=== PATIENT | male | born 1960 | race Caucasian/White ===

== ENCOUNTER 2020-12-28 02:53 | Outpatient (CLI) | payer BC, SELFPAY ==
[2020-12-29 12:37] LABS: ALT 77 U/L (16-63); AST 61 U/L (15-37); Albumin 3.9 g/dL (3.4-5.0); Alkaline Phosphatase 74 U/L (46-116); Anion Gap 7.6 mmol/L (3-11); BUN 11 mg/dL (7-18); CO2 30.4 mmol/L (21.0-32.0); CREATININE 1.1 mg/dL (0.70-1.30); Calcium 9.3 mg/dL (8.5-10.1); Chloride 104 mmol/L (98-107); Glucose 122 mg/dL (74-106); Potassium 4.7 mmol/L (3.5-5.1); Sodium 142 mmol/L (136-145); Total Protein 7.2 g/dL (6.4-8.2)
[2020-12-29 12:43] LABS: Hemoglobin A1C 5.9 % (<5.7)
== END 2020-12-28 10:00 ==
DX: R73.9 Hyperglycemia, unspecified (principal)
CPT/HCPCS: 36415; 80053; 83036

== ENCOUNTER 2021-12-22 10:00 | Outpatient (CLI) | payer BC, SELFPAY ==
[2021-12-22 13:37] LABS: ALT 49 U/L (16-63); AST 31 U/L (15-37); Albumin 4.2 g/dL (3.4-5.0); Alkaline Phosphatase 75 U/L (46-116); Anion Gap 8.4 mmol/L (3-11); BUN 17 mg/dL (7-18); CO2 29.6 mmol/L (21.0-32.0); Calcium 8.9 mg/dL (8.5-10.1); Calculated LDL 98 mg/dL (<100); Chloride 105 mmol/L (98-107); Cholesterol 179 mg/dL (<200); Glucose 113 mg/dL (74-106); HDL Cholesterol 58 mg/dL (40-60); Potassium 4.1 mmol/L (3.5-5.1); Sodium 143 mmol/L (136-145); Total Protein 7.3 g/dL (6.4-8.2); Triglyceride 115 mg/dL (<150)
== END 2021-12-22 10:01 | disposition home or self-care (01) ==
LOC: LOS 10:00
DX: Z00.00 Encounter for general adult medical examination without abnormal findings (principal); E78.5 Hyperlipidemia, unspecified
CPT/HCPCS: 36415; 80053; 80061

== ENCOUNTER 2022-12-26 13:52 | Outpatient (REF) | payer BC, SELFPAY ==
[2022-12-26 14:31] LABS: Hemoglobin A1C 5.6 % (<5.7)
[2022-12-26 14:34] LABS: ALT 52 U/L (16-63); AST 25 U/L (15-37); Alkaline Phosphatase 75 U/L (46-116); Anion Gap 8.6 mmol/L (3-11); BUN 16 mg/dL (7-18); Bilirubin, Total 0.6 mg/dL (0.2-1.0); CO2 26.4 mmol/L (21.0-32.0); Calcium 8.9 mg/dL (8.5-10.1); Calculated LDL 101 mg/dL (<100); Chloride 104 mmol/L (98-107); Cholesterol 184 mg/dL (<200); Estimated GFR 85.63 (mL/min/1.73m2); Glucose 144 mg/dL (74-106); HDL Cholesterol 54 mg/dL (40-60); Potassium 4.6 mmol/L (3.5-5.1); Sodium 139 mmol/L (136-145); Total Protein 7.3 g/dL (6.4-8.2); Triglyceride 148 mg/dL (<150)
[2022-12-27 10:04] LABS: HIV-1/2 Ag & Ab Screen Negative (Negative)
[2022-12-27 10:21] LABS: Hepatitis C Ab w Rflx HCV PCR Negative (Negative)
== END 2022-12-26 13:53 | disposition home or self-care (01) ==
LOC: LBN 13:52
PROVIDERS: PCP Nurse Practitioner Family; Visit Provider Nurse Practitioner Family
DX: E78.5 Hyperlipidemia, unspecified (principal); R73.01 Impaired fasting glucose; Z11.4 Encounter for screening for human immunodeficiency virus [HIV]; Z11.59 Encounter for screening for other viral diseases
CPT/HCPCS: 80053; 80061; 86803; 87389; 83036

== ENCOUNTER 2024-01-11 08:08 | Outpatient (CLI) | payer BC, SELFPAY ==
[2024-01-11 12:37] LABS: ALT 66 U/L (16-63); AST 47 U/L (15-37); Albumin 3.9 g/dL (3.4-5.0); Alkaline Phosphatase 72 U/L (46-116); Anion Gap 9.4 mmol/L (3-11); BUN 14 mg/dL (7-18); Bilirubin, Total 0.6 mg/dL (0.2-1.0); CO2 27.6 mmol/L (21.0-32.0); CREATININE 1.1 mg/dL (0.70-1.30); Calcium 9.2 mg/dL (8.5-10.1); Calculated LDL 98 mg/dL (<100); Chloride 105 mmol/L (98-107); Cholesterol 174 mg/dL (<200); Glucose 166 mg/dL (74-106); HDL Cholesterol 57 mg/dL (40-60); Potassium 4.4 mmol/L (3.5-5.1); Sodium 142 mmol/L (136-145); Total Protein 7.6 g/dL (6.4-8.2); Triglyceride 95 mg/dL (<150)
== END 2024-01-11 08:09 | disposition home or self-care (01) ==
LOC: LOS 08:08
PROVIDERS: PCP Nurse Practitioner Family; Referring Provider Nurse Practitioner Family; Visit Provider Nurse Practitioner Family
DX: E78.5 Hyperlipidemia, unspecified (principal)
CPT/HCPCS: 36415; 80053; 80061

== ENCOUNTER 2024-07-29 02:17 | Outpatient (CLI) | payer BC, SELFPAY ==
[2024-07-29 12:13] LABS: Hemoglobin A1C 6.3 % (<5.7)
[2024-07-29 13:12] LABS: ALT 59 U/L (16-63); AST 45 U/L (15-37); Albumin 4.2 g/dL (3.4-5.0); Alkaline Phosphatase 86 U/L (46-116); Anion Gap 7.7 mmol/L (3-11); BUN 12 mg/dL (7-18); Bilirubin, Total 0.92 mg/dL (0.2-1.0); CO2 30.3 mmol/L (21.0-32.0); Calcium 9.7 mg/dL (8.5-10.1); Chloride 103 mmol/L (98-107); Glucose 152 mg/dL (74-106); Potassium 4.4 mmol/L (3.5-5.1); Sodium 141 mmol/L (136-145)
== END 2024-07-29 02:18 | disposition home or self-care (01) ==
PROVIDERS: PCP Nurse Practitioner Family; Visit Provider Nurse Practitioner Family
DX: R73.03 Prediabetes (principal)
CPT/HCPCS: 36415; 80053; 83036

== ENCOUNTER 2025-01-14 02:21 | Outpatient (CLI) | payer OTHER, SELFPAY ==
--- NOTE | 2025-01-14 07:15 | DI.RAD_ITS ---
Exam(s) XR HIP RT COMPLETE AP PELVIS EXAM: XR HIP RT COMPLETE AP PELVIS CLINICAL HISTORY: not resolved with PT,rt hip pain,m25.551. TECHNIQUE: 2D digital imaging was performed of the right hip. Two images were obtained. AP pelvis and lateral right hip views were obtained. COMPARISON: No exams were available for comparison FINDINGS: BONES: No acute fracture is present. No bony destructive lesion is seen. JOINTS: No dislocation present. Both hips show joint space narrowing and osteophytes arising from the superior acetabuli. The symphysis pubis and sacroiliac joints are unremarkable. Mild degenerative changes are seen at the L4-5 disc space. SOFT TISSUE: Normal. IMPRESSION: Mild degenerative changes seen in the hips bilaterally. DATA REPOSITORY: RADIATION DOSE DELIVERED:
== END 2025-01-14 02:41 ==
LOC: DI 02:22
PROVIDERS: PCP Nurse Practitioner Family; Visit Provider Nurse Practitioner Family
DX: M25.551 Pain in right hip (principal)
CPT/HCPCS: 73502

== ENCOUNTER 2025-07-13 09:24 | Outpatient (CLI) | payer OTHER, SELFPAY ==
[2025-07-13 15:38] LABS: ESR 3 mm/hr (0-20)
[2025-07-13 15:47] LABS: Hemoglobin A1C 5.9 % (<5.7)
[2025-07-13 15:49] LABS: Uric Acid 8.4 mg/dL (3.7-9.2)
[2025-07-13 15:54] LABS: C-Reactive Protein < 0.50 mg/dL (<=0.50)
[2025-07-13 16:42] LABS: ALT 47 U/L (10-49); AST 37 U/L (<34); Albumin 4.7 g/dL (3.2-5.0); Alkaline Phosphatase 69 U/L (46-116); Anion Gap 11.3 mmol/L (3-11); BUN 14 mg/dL (9-23); Bilirubin, Total 0.8 mg/dL (0.2-1.2); CO2 25.7 mmol/L (20.0-31.0); Calcium 9.6 mg/dL (8.3-10.6); Chloride 105 mmol/L (98-107); Cholesterol 166 mg/dL (<200); Glucose 136 mg/dL (74-106); HDL Cholesterol 56 mg/dL (>40); Potassium 4.3 mmol/L (3.5-5.1); Sodium 142 mmol/L (136-145); Total Protein 7.7 g/dL (5.7-8.2)
== END 2025-07-13 09:25 | disposition home or self-care (01) ==
PROVIDERS: PCP Nurse Practitioner Family; Visit Provider Nurse Practitioner Family
DX: R73.03 Prediabetes (principal); E78.5 Hyperlipidemia, unspecified
CPT/HCPCS: 36415; 80053; 80061; 85652; 82043; 82570; 83036; 84550; 86140

== ENCOUNTER → 2025-07-16 08:58 | Outpatient (CLI) | payer OTHER, SELFPAY ==
--- NOTE | 2025-07-16 14:05 | DI.MRI_ITS ---
Exam(s) MR LOWER JOINT RT WO EXAM: MR LOWER JOINT RT WO CLINICAL HISTORY: no improvement with PT,rt hip pain,m25.551 TECHNIQUE: Multiplanar multisequence MRI of Pelvis was performed COMPARISON: CR XR HIP RT COMPLETE AP PELVIS from 01/14/2025 FINDINGS: Bones: There is no fracture or contusion pattern. No bone marrow edema is seen. There are advanced degenerative disc changes at L4-5 and L5-S1. Joints: No significant joint effusion is present. There are degenerative changes of the superior labrum. There is mild spurring at the margin of the femoral head. The SI joints and symphysis pubis are well maintained. Musculotendinous structures: There is mild increased signal at the distal gluteus medius tendon consistent with tendinitis. Intrapelvic structures demonstrate no significant abnormality. IMPRESSION: Tendinitis of the gluteus medius. Mild degenerative changes of the hip joint. DATA REPOSITORY:
== END ==
LOC: DI 09:02
PROVIDERS: PCP Nurse Practitioner Family; Visit Provider Nurse Practitioner Family
DX: M25.551 Pain in right hip (principal); M76.01 Gluteal tendinitis, right hip; M16.11 Unilateral primary osteoarthritis, right hip
CPT/HCPCS: 73721